=== PATIENT | female | born 1975 | race American Indian/Alaskan Native ===

== ENCOUNTER 2017-06-02 23:43 | Emergency (ER) | payer SELFPAY ==
[2017-06-03 00:39] VITALS: BP 100/65
[2017-06-03] MEDS ORDERED: MOTRIN PO ONE (01:14)
[2017-06-03] MEDS ORDERED: LIDOCAINE VISCOUS 2% PO ONE (01:15)
[2017-06-03] MEDS ORDERED: DECADRON PO ONE (01:16)
== END 2017-06-03 05:57 | disposition left against medical advice (07) ==
LOC: ED 23:43
DX: Z53.21 Procedure and treatment not carried out due to patient leaving prior to being seen by health care provider (principal)
CPT/HCPCS: 87116; 87430; J1100